=== PATIENT | female | born 1970 | race Caucasian/White ===

== ENCOUNTER 2023-06-11 10:19 | Outpatient (CLI) | payer BC | END 2023-06-11 10:20 | disposition home or self-care (01) | LOC: CSHMRI 10:19 | PROVIDERS: ATTEND Surgery | DX: M43.16 Spondylolisthesis, lumbar region (principal); M47.816 Spondylosis without myelopathy or radiculopathy, lumbar region; M48.061 Spinal stenosis, lumbar region without neurogenic claudication | CPT/HCPCS: 72148 ==

== ENCOUNTER 2023-07-05 09:10 | Outpatient (CLI) | payer BC | END 2023-07-05 09:11 | disposition home or self-care (01) | LOC: CSHMAMMO 09:10 | PROVIDERS: ATTEND Family Medicine | DX: Z12.31 Encounter for screening mammogram for malignant neoplasm of breast (principal); Z80.3 Family history of malignant neoplasm of breast; N63.15 Unspecified lump in the right breast, overlapping quadrants | CPT/HCPCS: 77063; 77067 ==

== ENCOUNTER 2024-08-01 14:34 | Outpatient (CLI) | payer BC | END 2024-08-01 14:35 | disposition home or self-care (01) | LOC: CSHRAD 14:34 | PROVIDERS: ATTEND Physician Assistant | DX: M48.061 Spinal stenosis, lumbar region without neurogenic claudication (principal); M54.16 Radiculopathy, lumbar region; M43.16 Spondylolisthesis, lumbar region; Z98.890 Other specified postprocedural states | CPT/HCPCS: 72100 ==